=== PATIENT | female | born 1990 | race Caucasian/White ===

== ENCOUNTER 2023-10-04 13:47 | Outpatient (CLI) | payer BC, SELFPAY ==
--- NOTE | 2023-10-04 13:58 | CT_ITS ---
FINAL REPORT TECHNIQUE: Multiple axial CT sections were performed through the face without IV contrast. Coronal and sagittal reconstruction images were performed. This study was performed with techniques to keep radiation doses as low as reasonably achievable (ALARA). Individualized dose reduction techniques using automated exposure control or adjustment of mA and/or kV according to the patient's size were employed. CLINICAL HISTORY: sinusitis COMPARISON: None FINDINGS: CT SINUSES: There is severe bilateral maxillary sinusitis. Mild bilateral ethmoid sinusitis is present as well. The frontal and sphenoid sinuses are clear. The nasal septum is midline. Postoperative changes are present in the maxillary and ethmoid sinuses. IMPRESSION: Severe bilateral maxillary sinusitis, with mild bilateral ethmoid sinusitis. Postoperative changes are present in the maxillary and ethmoid sinuses. Reviewed, Interpreted and Dictated by Marty Kelly MD Transcribed by Indigo Rosa Authenticated and [facility]
== END 2023-10-04 23:59 | disposition home or self-care (01) ==
LOC: RAD 13:54
PROVIDERS: Visit Provider Student in an Organized Health Care Education/Training Program
DX: J32.9 Chronic sinusitis, unspecified (principal); B96.1 Klebsiella pneumoniae [K. pneumoniae] as the cause of diseases classified elsewhere
CPT/HCPCS: 70486; 87070; 87077; 87186

== ENCOUNTER 2025-02-19 13:48 | Outpatient (CLI) | payer BC, SELFPAY ==
--- NOTE | 2025-02-19 13:53 | XR_ITS ---
FINAL REPORT CLINICAL HISTORY: Right Foot Puncture Wound FINDINGS: AP, oblique and lateral views of the right foot were obtained. There is no acute fracture or dislocation. The joint spaces are preserved. No foreign body is identified. Soft tissues are unremarkable. IMPRESSION: No acute osseous abnormality of the right foot. Reviewed, Interpreted and Dictated by Babita White MD Transcribed by Shyla Camarillo Authenticated and [facility]
--- OUTSIDE RECORDS SUMMARY | 2025-02-19 13:57 | XMS_ITS | Clinical Summary ---
Author Organization [facility] Address [address] [place] [address] Care Team Providers Care Ems Coordinator Name Role Phone Jessica Funk MD Primary Care Provider [phone] Allergies Active Allergy Reactions Criticality Noted Date Comments Omeprazole Itching High 04/25/2017 Medications sertraline (ZOLOFT) 100 MG tablet Take 1 tablet by mouth once daily 30 tablet 12 10/17/2022 2:38 PM EDT 2 Active cetirizine (zyrTEC) 10 MG tablet Take 1 tablet by mouth Daily. Active vitamin (, CLASSIC, vitamin) tablet Take 1 tablet by mouth Daily. Active famotidine (PEPCID) 20 MG tablet Take 1 tablet by mouth At Night As Needed for Heartburn. Active pseudoephedrine -guaifenesin (MUCINEX D) 60-600 MG per 12 hr tablet Take 1 tablet by mouth Every 12 (Twelve) Hours. Active SUMAtriptan (Imitrex) 100 MG tablet Take 1 tablet by mouth Every 2 (Two) Hours As Needed for Migraine (Take one tablet at migraine onset. May be repeated in 2 hours.) for up to 6 doses. Take one tablet at onset of headache. May repeat dose one time in 2 hours if headache not relieved. 6 tablet 5 Active docusate sodium 100 MG capsule Take 1 capsule by mouth 2 (Two) Times a Day As Needed for Constipation. 60 capsule 07/29/2024 10:27 AM EDT 5 Active acetaminophen (TYLENOL) 325 MG tablet Take 2 tablets by mouth Every 6 (Six) Hours As Needed for Mild Pain (Second Line: Mild pain unrelieved by ibuprofen. Stagger doses 3 hours after dose of ibuprofen.). 50 tablet 07/29/2024 10:27 AM EDT Active ibuprofen (ADVIL,MOTRIN) 600 MG tablet Take 1 tablet by mouth Every 6 (Six) Hours As Needed for Mild Pain (First Line: Mild pain.). 40 tablet 07/29/2024 10:27 AM EDT Active Active Problems Problem Noted Date Diagnosed Date History of HELLP syndrome, currently Intestinal malabsorption 05/15/2024 Anemia of 01/27/2023 Resolved Problems Problem Noted Date Diagnosed Date Resolved Date Cholestasis of in third trimester 07/28/2024 07/29/2024 03/08/2023 07/29/2024 Family History Medical History Relation Name Comments Alcohol abuse Father Anxiety disorder Father Depression Father Heart attack Maternal Grandfather Heart disease Maternal Grandfather Osteoporosis Maternal Grandmother Osteoporosis Mother Throat cancer Paternal Grandfather Relation Name Status Comments Father Maternal Grandfather Maternal Grandmother Mother Paternal Grandfather Social History Tobacco Use Types Packs/Day Years Used Date Smoking Tobacco: Never Passive Smoke Exposure: Never Smokeless Tobacco: Never Tobacco Cessation:Counseling Given: Not Answered Alcohol Use Standard Drinks/Week Comments Never 0 (1 standard drink = 0.6 oz pur e alcohol) AUDIT-C Answer Date Recorded Q1: How often do you have a drink containing alcohol? Never 07/27/2024 Q2: How many drinks containi ng alcohol do you have on a typical day when you are drinking? Patient does not drink Q3: How often do you have si x or more drinks on one occasion? Never 07/27/2024 [place] Depression Scale Answer Date Recorded [place] Depression Scale Total 0 08/07/2024 The thought of harming myself has occurred to me . Never 08/07/2024 Abuse Screen Answer Date Recorded Feels Unsafe at Home or Work/School no 07/27/2024 Feels Threatened by Someone no 07/16 Does Anyone Try to Keep You From Having Contact with Others or Doing Things Outside Your Home? no 07/27/2024 Physical Signs of Abuse Present no 07/27/2024 Housing Stability Answer Date Recorded Current Living Arrangements home 07/16 Potentially Unsafe Housing Conditions Not on simon e 07/27/2024 Disabilities Answer Date Recorded Difficulty Concentrating, Remembering or Making Decisions no 07/27/2024 Difficulty Managing Errands Independently no 07/27/2024 Comments No Sex and Gender Information Value Date Recorded Sex Assigned at Not on file Legal Sex Female 8:04 PM EDT Gender Identity Not on file Sexual Orientation Not on file Last Filed Vital Signs Vital Sign Reading Time Taken Comments Blood Pressure 120/76 07/29/2024 8:38 AM EDT Pulse 79 07/29/2024 8:38 AM EDT Temperature 36.4 C (97.6 F) 07/29/2024 8:38 AM EDT Respiratory Rate 16 07/29/2024 8:38 AM EDT Oxygen Saturation 100% 07/28/2024 7:55 AM EDT Inhaled Oxygen Concentration - - Weight 68.8 kg (151 lb 9.6 oz) 07/27/2024 6:11 P M EDT Height 165.1 cm (5' 5 ) 07/27/2024 5:20 PM EDT Body Mass Index 25.23 07/27/2024 5:20 PM EDT Plan of Treatment Health Maintenance Due Date Last Done Comments Annual Gynecologic Pelvic and Breast Exam 1992 ANNUAL PHYSICAL 03/24/2022 INFLUENZA VACCINE 11/15/2024 02/16/2024, , 02/25/2022, Additional history exists TDAP/TD VACCINES (5 - Td or Tdap) 05/30/2034 05/30/2024, 12/22/2022, 11/19/2018, Additional history exists HEPATITIS C SCREENING Completed 12/11/2023 , 08/22/2022, 04/25/2017, Additional history exists Pneumococcal Vaccine 0-49 Aged Out No longer eligible based on patient's age to complete this topic Procedures Procedure Name Priority Date/Time Associated Diagnosis Comments HEPATITIS C ANTIBODY Routine 08/22/2022 from Last 3 Months or Most Recently Relevant to Health Maintenance Results * Hepatitis C Antibody (08/22/2022) External Hepatitis C Ab Non-Reacti ve Blood us Historical Provider LAB BLOOD ORDERABLES Mabel l Result from Last 3 Months or Most Recently Relevant to Health Maintenance Insurance [facility] BL[facility] PPO Advance Directives * CPR (Attempt to Resuscitate) (Latest Code Status on File) Date Activated Date Inactivated Comments 07/28/2024 9:59 AM 07/29/2024 1:52 PM Question Answer Comments Code Status (Patient has no pulse and is not breathing): CPR (Attempt to Resuscitate) Medical Interventions (Patie nt has pulse or is breathing): Full * CPR (Attempt to Resuscitate) Date Activated Date Inactivated Comments 07/27/2024 4:51 PM 07/28/2024 9:59 AM Question Answer Comments Code Status (Patient has no pulse and is not breathing): CPR (Attempt to Resuscitate) Medical Interventions (Patie nt has pulse or is breathing): Full Support Level Of Support Discussed With: Patient * CPR (Attempt to Resuscitate) Date Activated Date Inactivated Comments 03/08/2023 9:08 PM 03/10/2023 2:35 PM Question Answer Comments Code Status (Patient has no pulse and is not breathing): CPR (Attempt to Resuscitate) Medical Interventions (Patie nt has pulse or is breathing): Full * CPR (Attempt to Resuscitate) Date Activated Date Inactivated Comments 03/08/2023 9:25 AM 03/08/2023 9:08 PM Question Answer Comments Code Status (Patient has no pulse and is not breathing): CPR (Attempt to Resuscitate) Medical Interventions (Patie nt has pulse or is breathing): Full Support Level Of Support Discussed With: Patient Care Teams Ems Coordinator Relationship Specialty Start Date End Date Jessica Funk MD [address] [place] [address] PCP - General Internal Medicine 07/27/24
--- OUTSIDE RECORDS SUMMARY | 2025-02-19 13:57 | XMS_ITS | Clinical Summary ---
Author Organization [facility] Address [address] [place] [address] Care Team Providers Care Emanations Analysis Technician Name Role Phone Pcp, None Primary Care Provider Unavailabl e Social History Tobacco Use Types Packs/Day Years Used Date Smoking Tobacco: Never Assessed Comments Unknown Sex and Gender Information Value Date Recorded Sex Assigned at Not on file Legal Sex Female 6:47 PM EDT Gender Identity Not on file Sexual Orientation Not on file Plan of Treatment Health Maintenance Due Date Last Done Comments HIV Screening 1992 Hepatitis C Screening 1992 Lipid Panel 1992 MMR Vaccines (1 of 1 - Standard series) 1993 Varicella Vaccines (1 of 2 - 13+ 2-dose series) 2005 Hepatitis B Screening 2010 DTaP/Tdap/Td Vaccines (1 - Tdap) 10/03/2011 Hepatitis B Vaccines (1 of 3 - 19+ 3-dose series) 10/03/2011 HPV Vaccines (1 - 3-dose SCD M series) 10/03/2019 HPV/Cotest 2022 Depression Risk Screening 04/17/2024 SDOH Screening 04/17/2024 Cervical Cancer Screening 08/03/2024 Pap Smear 08/03/2024 08/03/2021 COVID-19 Vaccine (3 - 2024-2 6 season) 2024 05/04/2020, 04/13/2020 Influenza Vaccine (#1) 2024 2, 01/17/2019, 03/16/2018 Zoster Vaccines (1 of 2) 2042 HIB Vaccines Aged Out No longer eligi ble based on patient's age to complete this topic Hepatitis A Vaccines Aged Out No long er eligible based on patient's age to complete this topic IPV Vaccines Aged Out No longer eligi ble based on patient's age to complete this topic Meningococcal B Vaccine Aged Out No l onger eligible based on patient's age to complete this topic Meningococcal Vaccine Aged Out No fabian abrahan eligible based on patient's age to complete this topic Pneumococcal Vaccine Aged Out No long er eligible based on patient's age to complete this topic Rotavirus Vaccines Aged Out No longer eligible based on patient's age to complete this topic Care Teams Emanations Analysis Technician Relationship Specialty Start Date End Date Pcp, None PCP - General 08/05/22
--- OUTSIDE RECORDS SUMMARY | 2025-02-19 13:57 | XMS_ITS | Clinical Summary ---
Author Organization [facility] Address [address] [place] [address] Care Team Providers Care Automatic Packer Operator Name Role Phone Jessica Funk MD Primary Care Provider Allergies Active Allergy Reactions Criticality Noted Date Comments Omeprazole Itching High 04/25/2017 Medications cetirizine (ZYRTEC) 5 MG tablet Take 5 mg by mouth daily. Active sertraline (ZOLOFT) 100 MG tablet Take 1 tablet by mouth daily. 0 Active famotidine (PEPCID) 20 MG tablet Take 20 mg by mouth daily. Active metoclopramide (REGLAN) 10 MG tablet Take 1 tablet by mouth every 6 (six) hours as needed (Nausea or vomiting). 20 tablet 4 Active Additional Information Patient not taking.Reported on 12/19/2023 colestipol (COLESTID) 1 g tabletIndication s:Diarrhea, unspecified type Take 1 tablet by mouth 2 (two) times daily. 60 tablet 3 5 Active Active Problems Patient Care Coordination No te Formatting of this note migh t be different from the original. 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 Mcfarlane Problem Noted Date Diagnosed Date First trimester 12/12/2023 Post-ERCP acute pancreatitis 12/11/2023 Choledocholithiasis 12/11/2023 Symptomatic cholelithiasis 10/31/2023 Episode of heavy vaginal bleeding 04/02/2022 Thrombocytopenia 04/02/2022 Anemia associated with acute blood loss 04/02/20 22 DIC (disseminated intravascular coagulation) (spontaneous vaginal delivery) 02/06/2019 Overview (05/27/2022): G2: , male. No lacerations. EBL: 250 mL. Induction of labor for gestational hypertension. Gestational hypertension 02/05/2019 Fall 01/25/2019 Fatigue 08/02/2017 Elevated glucose tolerance test 07/14/2017 Rubella non-immune status, antepartum 04/28/2017 Overview (04/28/2017): MMR post Depression 04/25/2017 Immunizations Immunization Administration Dates Next Due COVID-19 Pfizer PURPLE Ages 12 and Older 021,04/13/2020 Hep B, Adult/11-15 YO 08/29/2018 Influenza Vaccine Quadrivalent Pf 02/25/2022 Influenza Vaccine Tri (IM) 01/17/2019,03/16/2018 Influenza, Injectable, MDCK, Preservative Free, Quadrivalent 02/17/2023 MMR 10/12/2017 PPD Test 12/25/2017 Tdap 12/22/2022,11/19/2018,08/11/2017 Family History Medical History Relation Comments Asthma Brother Heart murmur Brother Diabetes Maternal Grandfather Heart disease Maternal Grandfather Leukemia Maternal Grandfather Neuropathy Maternal Grandmother Diabetes Paternal Grandfather Heart disease Paternal Grandfather chf Liver disease Paternal Grandfather Throat cancer Paternal Grandmother Relation Status Comments Brother Alive Father Alive Maternal Grandfather Maternal Grandmother Alive Mother Alive Paternal Grandfather Alive Paternal Grandmother Social History Tobacco Use Types Packs/Day Years Used Date Smoking Tobacco: Never Smokeless Tobacco: Never Tobacco Cessation:Counseling Given: Not Answered Alcohol Use Standard Drinks/Week Comments Not Currently 0 (1 standard drink = 0.6 oz pure alcohol) socially, quit with Hunger Vital Sign Answer Date Recorded Within the past 12 months, y ou worried that your food would run out before you got the money to buy more. Never true 12/19/19 24 Ran Out of Food in the Last Year Not on file 12/19/2023 PRAPARE - Transportation Answer Date Re corded In the past 12 months, has l ack of transportation kept you from medical appointments or from getting medications? No 06/2023 In the past 12 months, has l ack of transportation kept you from meetings, work, or from getting things needed for daily living? No 12/19/2023 Housing Stability Vital Sign Answer Luke e Recorded In the last 12 months, was t here a time when you were not able to pay the mortgage or rent on time? No 12/19/2023 Number of Places Lived in the Last Year Not on f ile 12/19/2023 In the last 12 months, was t here a time when you did not have a steady place to sleep or slept in a fci (including now)? No 12/19/2023 Comments Unknown Sex and Gender Information Value Date Recorded Sex Assigned at Not on file Legal Sex Female 11:17 AM EST Gender Identity Not on file Sexual Orientation Not on file Last Filed Vital Signs Vital Sign Reading Time Taken Comments Blood Pressure 110/64 12/27/2023 2:55 PM EDT Pulse 84 12/27/2023 2:55 PM EDT Temperature 36.6 C (97.8 F) 09/30/2024 9:41 AM EDT Respiratory Rate 18 12/18/2023 3:28 PM EDT Oxygen Saturation 97% 12/18/2023 3:28 PM EDT Inhaled Oxygen Concentration - - Weight 63.9 kg (140 lb 14 oz) 09/30/2024 9:41 AM EDT Height 167.6 cm (5' 6 ) 12/27/2023 2:30 PM EDT Body Mass Index 22.74 12/27/2023 2:30 PM EDT Plan of Treatment Upcoming Encounters Date Type Department Care Team (Late st Contact Info) Description 10/20/2025 9:00 AM EDT Office Visit [facility] [address] [place] [address] Mary Carmen Fang MD [address] [place] [address] Health Maintenance Due Date Last Done Comments Hepatitis B (HepB) Vaccine (2 of 3 - 19+ 3-dose series) 09/26/2018 08/29/2018 HPV Vaccine (1 - 3-dose SCDM series) 10/03/2019 Annual SDOH Screening 04/17/2024 Influenza Vaccine (#1) 2024 4, 02/17/2023, 02/25/2022, Additional history exists Cervical Cancer Screening 09/15/20252022 (Done at another facility), 05/05/2017 Tdap/Td Vaccine >11 yo (5 - Td or Tdap) 05/30/2034 05/30/2024, 12/22/2022, 11/19/2018, Additional history exists Haemophilus Influenzae Type B (Hib) Vaccine Aged Out No longer eligible based on patient's age to complete this topic Hepatitis A (HepA) Vaccine Aged Out N o longer eligible based on patient's age to complete this topic Meningococcal ACWY Aged Out No longer eligible based on patient's age to complete this topic Pneumococcal Vaccines 6-49 yo Risk Aged Out No longer eligible based on patient's age to complete this topic Polio (IPV) Aged Out No longer eligi ble based on patient's age to complete this topic Rotavirus (RV) Vaccine Aged Out No lo nger eligible based on patient's age to complete this topic Procedures Procedure Name Priority Date/Time Associated Diagnosis Comments PAP SMEAR Routine 05/05/2017 12:00 AM EST Encounter for supervision of normal first in first trimester Encounter for screening of mother from Last 3 Months or Most Recently Relevant to Health Maintenance Results * Pap Smear (05/05/2017 12:00 AM EST) Pathology SPECIMEN FROM UTERINE CERVIX / Unknown 05/05/2017 05/05/2017 7:41 PM EST Comment:THINPREP, CERVICAL/E NDOCERVICAL PAP - IMAGED Narrative SUNQUEST - 05/12/2017 10:54 AM EST Patient Name: TEX HALEY [facility] [address] [place], [place] [address] GYNECOLOGIC CYTOLOGY REPORT DIAGNOSIS: NEGATIVE (No evidence of intraepithelial lesions or malignancy) SPECIMEN ADEQUACY: Satisfactory for evaluation: Endocervical cells present. Electronically Signed Out By Albania Martell SPECIMEN SOURCE: Thinprep, Cervical/Endocervical Pap - Imaged LAST MENSTRUAL PERIOD: 01/24/2017 Pap smear testing is subject to false negative and false positive results. This result should be interpreted in conjunction with history and clinical findings. ThinPrep specimens have been analyzed by the ThinPrep Imaging System (Mimvi), an automated imaging and review system. Float Operator: Tho Kwok MD Director of Cytopathology: Deborah Martin MD us Kimberly Mcfarlane MD PATHOLOGY/CYTOLOGY ORDERABLE S Final Result Performing Organization Address City/State/[facility] Co de Phone Number [id number] [address] [id number] from Last 3 Months or Most Recently Relevant to Health Maintenance Additional Health Concerns Infection Onset Date Last Indicated Rule Out C. Difficile 09/30/2024 09/30/2024 Insurance ANTHEM Advance Directives * Full Code (Latest Code Status on File) Date Activated Date Inactivated Comments 12/11/2023 10:53 PM 12/18/2023 7:42 PM * Full Code Date Activated Date Inactivated Comments 12/11/2023 10:27 AM 12/11/2023 10:53 PM * Full Code Date Activated Date Inactivated Comments 04/02/2022 2:44 PM 04/04/2022 8:17 PM Care Teams Automatic Packer Operator Relationship Specialty Start Date End Date Jessica Funk MD [address] [place] [address] PCP - General Family Medicine 12/29/22
== END 2025-02-19 23:59 | disposition home or self-care (01) ==
LOC: RAD 13:50
PROVIDERS: Visit Provider Podiatrist
DX: L03.115 Cellulitis of right lower limb (principal); S91.331A Puncture wound without foreign body, right foot, initial encounter; X58.XXXA Exposure to other specified factors, initial encounter
CPT/HCPCS: 73630; 87070; 87205

== ENCOUNTER 2025-02-19 13:48 | Outpatient (CLI) | payer BC, SELFPAY ==
--- OUTSIDE RECORDS SUMMARY | 2025-02-21 14:05 | XMS_ITS | Clinical Summary ---
Author Organization [facility] Address [address] [place] [address] Care Team Providers Care Silo Man Name Role Phone Jessica Funk MD Primary Care Provider [phone] Allergies Active Allergy Reactions Criticality Noted Date [...] more drinks on one occasion? Never 07/27/2024 [place] Depression Scale Answer Date Recorded [place] Depression Scale Total 0 08/07/2024 The thought [...] Most Recently Relevant to Health Maintenance Insurance [facility] BLUE [facility] PPO Advance Directives * CPR (Attempt [...] Of Support Discussed With: Patient Care Teams Silo Man Relationship Specialty Start Date End Date Jessica Funk MD [address] [place] [address] PCP - General Internal Medicine 07/27/24
--- OUTSIDE RECORDS SUMMARY | 2025-02-21 14:05 | XMS_ITS | Clinical Summary ---
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 No 12/19/2023 Comments Unknown Sex [...] Description 10/20/2025 9:00 AM EDT Office Visit [facility] [address] [place] [address] Mary Carmen Fagn MD [address] [place] [address] Health Maintenance Due Date Last [...] 10:54 AM EST Patient Name: TEX HALEY [facility] [address] [place], [place] [address] GYNECOLOGIC CYTOLOGY REPORT DIAGNOSIS: NEGATIVE (No evidence [...] been analyzed by the ThinPrep Imaging System (J. Hilburn), an automated imaging and review system. Database Specialist: Tho Kwok MD Director of Cytopathology: Deborah Martin MD us Kimberly Mcfarlane MD PATHOLOGY/CYTOLOGY ORDERABLE S Final Result Performing Organization Address City/State/[facility] Co de Phone Number [id number] [address] [id number] from Last 3 Months or Most [...] 2:44 PM 04/04/2022 8:17 PM Care Teams Card Stripper Relationship Specialty Start Date End Date Jessica Funk MD [address] [facility] [place] [address] PCP - General Family Medicine 12/29/22
--- OUTSIDE RECORDS SUMMARY | 2025-02-21 14:05 | XMS_ITS | Clinical Summary ---
Author Organization [facility] Address [address] [place] [address] Care Team Providers Care Electroencephalograph Technologist Name Role Phone Pcp, None Primary Care [...] age to complete this topic Care Teams Electroencephalograph Technologist Relationship Specialty Start Date End Date Pcp, None PCP - General 08/05/22
== END 2025-02-19 23:59 | disposition home or self-care (01) ==
LOC: LAB 02-21 14:03
PROVIDERS: Visit Provider Podiatrist
DX: L03.115 Cellulitis of right lower limb (principal); M79.671 Pain in right foot; S91.331A Puncture wound without foreign body, right foot, initial encounter